=== PATIENT | female | born 1970 | race Caucasian/White ===

== ENCOUNTER → 2017-08-11 | Outpatient (CLI) | payer BC ==
--- NOTE | 2017-08-11 17:07 | DIAGNOSTIC IMAGING REPORT ---
LEFT KNEE 4 VIEWS CLINICAL HISTORY: Left knee pain status post trauma COMPARISON: None. DISCUSSION: No fractures or dislocations are visualized. The joint spaces appear relatively well preserved for age. IMPRESSION: No fractures or dislocations identified. Electronically signed by: Duarte Ro M.D. 08/11/2017 5:06 PM Dictated Date/Time: 08/11/2017 5:05 PM
== END | disposition home or self-care (01) ==
LOC: C.RDSM 16:06
PROVIDERS: ATTEND Family Medicine
DX: M25.562 Pain in left knee (principal)

== ENCOUNTER → 2017-11-12 | Outpatient (CLI) | payer BC ==
--- NOTE | 2017-11-12 15:23 | DIAGNOSTIC IMAGING REPORT ---
R RIBS UNILATERAL W/CHEST CLINICAL HISTORY: RIGHT SIDE RIB PAIN COMPARISON STUDY: None FINDINGS: Negative right ribs. No evidence for fracture. Lungs are clear. No evidence of pneumothorax. IMPRESSION: 1. Negative right ribs. 2. Negative chest. The above report was generated using voice recognition software. It may contain grammatical, syntax or spelling errors. Electronically signed by: Cody Crystal M.D. 11/12/2017 3:21 PM Dictated Date/Time: 11/12/2017 3:20 PM
== END | disposition home or self-care (01) ==
LOC: C.RDSM 20:19
PROVIDERS: ATTEND Family Medicine
DX: R07.81 Pleurodynia (principal)

== ENCOUNTER 2018-02-06 16:55 | Emergency (ER) | payer BC ==
[~2018-02-06] VITALS: Ht 170.2 cm; Wt 64.0 kg
[2018-02-06 17:03] VITALS: TEMP 36.9; Ht 170.2 cm; Wt 64.0 kg
[2018-02-06 18:24] LABS: BASO % 0.6 %; BASO ABS # 0.03 K/uL (0-0.2); EOS % 2.1 %; HEMATOCRIT 38.5 % (37-47); HEMOGLOBIN 12.9 g/dL (12.0-16.0); IG# 0.01 K/uL (0.00-0.02); LYMPH % 30.6 %; LYMPH ABS # 1.44 K/uL (1.2-3.4); MEAN CELL VOLUME 81.6 fL (80-100); MEAN CORPUSCULAR HEMOGLOBIN 27.3 pg (25-34); MEAN CORPUSCULAR HGB CONC 33.5 g/dl (32-36); MEAN PLATELET VOLUME 8.8 fL (7.4-10.4); MONO % 9.3 %; MONO ABS # 0.44 K/uL (0.11-0.59); NEUT % 57.2 %; NEUT ABS # 2.69 K/uL (1.4-6.5); PLATELET COUNT 260 K/uL (130-400); RED CELL DISTRIBUTION WIDTH CV 15.8 % (11.5-14.5); RED CELL DISTRIBUTION WIDTH SD 47.6 fL (36.4-46.3); WHITE BLOOD COUNT 4.71 K/uL (4.8-10.8)
[2018-02-06] MEDS ORDERED: SODIUM CHLORIDE 0.9% 1000ML 2,000 ML IV STA (18:27)
[2018-02-06] MEDS ORDERED: ONDANSETRON INJ 2 MG/ML 2 ML VIAL IV STA (18:27)
[2018-02-06] MEDS ORDERED: FAMOTIDINE 20 MG TAB PO ONE (18:30)
--- NOTE | 2018-02-06 18:35 | EMERGENCY ROOM VISIT NOTE ---
History Report prepared by Elzbieta: Ashanti Key Under the Supervision of: Dr. Deep Martinez M.D. First contact with patient: 18:12 Chief Complaint: GI ASSESSMENT Stated Complaint: STOMACH ISSUES,VOMITING,DEHYDRATION Nursing Triage Summary: Patient to Ed via triage, states "I started with vomiting and diarrhea Friday, I just feel so weak and dehydrated I feel like I need an IV." History of Present Illness The patient is a 47 year old female who presents to the Emergency Room with complaints of severe nausea and vomiting beginning 5 days spot cleaner. She states she flew to [place] one week spot cleaner and ran a half marathon there 5 days spot cleaner. She states she went home 4 days spot cleaner and was "violently throwing up." She states her diarrhea started 2 days ago in the morning and she went to the doctor that night and was told it was most likely a virus. She notes she had "terrible diarrhea" 4 days spot cleaner but has not had a bowel movement for the past 2 days. She states she feels severely dehydrated and nauseous and the last time she threw up was last night. She thinks her symptoms originated from her half marathon as she noticed they were bringing water "in buckets." Source of History: patient Onset: 5 days spot cleaner Position: other (global) Symptom Intensity: severe Quality: other (nausea and "violently vomiting") Associated Symptoms: + diarrhea ("terrible") Note: Positive dehydration. Review of Systems See HPI for pertinent positives and negatives. A total of ten systems were reviewed and were otherwise negative. Family History Patient reports no known family medical history. Social History Smoking Status: Never Smoker Smokeless Tobacco Use: Unknown Housing Status: unknown Occupation Status: employed Current/Historical Medications Scheduled Ondasetron Odt (Zofran Odt), 4 MG SL Q6H Protein (Protein), 1 DOSE PO DIRECTED [Juice Plus], 2 CAP PO TID Scheduled PRN Famotidine (Pepcid), 20 MG PO BID PRN for GI Upset Allergies Coded Allergies: No Known Allergies (Unverified , 02/06/18) Physical Exam Vital Signs Date Time Temp Pulse Resp B/P (MAP) Pulse Ox O2 Delivery O2 Flow Rate FiO2 02/06/18 21:40 51 20 112/68 99 02/06/18 21:40 59 20 112/68 99 Room Air 02/06/18 19:38 61 18 108/68 99 Room Air 02/06/18 18:46 51 20 116/66 100 Room Air 02/06/18 17:03 36.9 67 20 113/72 99 Room Air Physical Exam GENERAL: Awake, alert, fatigued-appearing, in no distress HENT: Normocephalic, atraumatic. Dry mucus membranes. EYES: Normal conjunctiva. Sclera non-icteric. NECK: Supple. No nuchal rigidity. FROM. No JVD. RESPIRATORY: Clear to auscultation. CARDIAC: Regular rate, normal rhythm. Extremities warm and well perfused. Pulses equal. ABDOMEN: Soft, non-distended. No tenderness to palpation. No rebound or guarding. No masses. RECTAL: Deferred. MUSCULOSKELETAL: Chest examination reveals no tenderness. The back is symmetrical on inspection without obvious abnormality. There is no CVA tenderness to palpation. No joint edema. LOWER EXTREMITIES: Calves are equal size bilaterally and non-tender. No edema. No discoloration. NEURO: Normal sensorium. No sensory or motor deficits noted. SKIN: No rash or jaundice noted. Medical Decision & Procedures Laboratory Results 02/06/18 17:55 Red Blood Count 4.72, Mean Corpuscular Volume 81.6, Mean Corpuscular Hemoglobin 27.3, Mean Corpuscular Hemoglobin Concent 33.5, Mean Platelet Volume 8.8, Neutrophils (%) (Auto) 57.2, Lymphocytes (%) (Auto) 30.6, Monocytes (%) (Auto) 9.3, Eosinophils (%) (Auto) 2.1, Basophils (%) (Auto) 0.6, Neutrophils # (Auto) 2.69, Lymphocytes # (Auto) 1.44, Monocytes # (Auto) 0.44, Eosinophils # (Auto) 0.10, Basophils # (Auto) 0.03 02/06/18 17:55 Test 02/06/18 17:55 02/06/18 20:00 White Blood Count 4.71 K/uL (4.8-10.8) Red Blood Count 4.72 M/uL (4.2-5.4) Hemoglobin 12.9 g/dL (12.0-16.0) Hematocrit 38.5 % (37-47) Mean Corpuscular Volume 81.6 fL (80-100) Mean Corpuscular Hemoglobin 27.3 pg (25-34) Mean Corpuscular Hemoglobin Concent 33.5 g/dl (32-36) Platelet Count 260 K/uL (130-400) Mean Platelet Volume 8.8 fL (7.4-10.4) Neutrophils (%) (Auto) 57.2 % Lymphocytes (%) (Auto) 30.6 % Monocytes (%) (Auto) 9.3 % Eosinophils (%) (Auto) 2.1 % Basophils (%) (Auto) 0.6 % Neutrophils # (Auto) 2.69 K/uL (1.4-6.5) Lymphocytes # (Auto) 1.44 K/uL (1.2-3.4) Monocytes # (Auto) 0.44 K/uL (0.11-0.59) Eosinophils # (Auto) 0.10 K/uL (0-0.5) Basophils # (Auto) 0.03 K/uL (0-0.2) RDW Standard Deviation 47.6 fL (36.4-46.3) RDW Coefficient of Variation 15.8 % (11.5-14.5) Immature Granulocyte % (Auto) 0.2 % Immature Granulocyte # (Auto) 0.01 K/uL (0.00-0.02) Anion Gap 5.0 mmol/L (3-11) Est Creatinine Clear Calc Drug Dose 56.1 ml/min Estimated GFR () 62.7 Estimated GFR (Non- 54.1 BUN/Creatinine Ratio 11.1 (10-20) Calcium Level 8.6 mg/dl (8.5-10.1) Total Bilirubin 0.4 mg/dl (0.2-1) Aspartate Amino Transf (AST/SGOT) 19 U/L (15-37) Alanine Aminotransferase (ALT/SGPT) 27 U/L (12-78) Alkaline Phosphatase 51 U/L (45-117) Total Protein 7.1 gm/dl (6.4-8.2) Albumin 3.6 gm/dl (3.4-5.0) Globulin 3.5 gm/dl (2.5-4.0) Albumin/Globulin Ratio 1.0 (0.9-2) Lipase 158 U/L (73-393) Human Chorionic Gonadotropin, Qual NEG (NEG) Urine Color DK YELLOW Urine Appearance CLOUDY (CLEAR) Urine pH 5.5 (4.5-7.5) Urine Specific [facility] 1.025 (1.000-1.030) Urine Protein NEG (NEG) Urine Glucose (UA) NEG (NEG) Urine Ketones TRACE (NEG) Urine Occult Blood NEG (NEG) Urine Nitrite NEG (NEG) Urine Bilirubin NEG (NEG) Urine Urobilinogen NEG (NEG) Urine Leukocyte Esterase NEG (NEG) Urine WBC (Auto) 1-5 /hpf (0-5) Urine RBC (Auto) 10-30 /hpf (0-4) Urine Hyaline Casts (Auto) 5-10 /lpf (0-5) Urine Epithelial Cells (Auto) >30 /lpf (0-5) Urine Bacteria (Auto) NEG (NEG) Urine Crystals CALCIUM OXALATE (NONE Laboratory results reviewed by me Medications Administered Medications (Trade) Dose Ordered Sig/Anish Route Start Time Stop Time Status Last Admin Dose Admin Sodium Chloride 2,000 ml @ 999 mls/hr Q2H1M STAT IV 02/06/18 18:27 02/06/18 20:27 DC 02/06/18 18:45 999 MLS/HR Ondansetron HCl (Zofran Inj) 4 mg NOW STAT IV 02/06/18 18:27 02/06/18 18:28 DC 02/06/18 18:45 4 MG Famotidine (Pepcid Tab) 20 mg NOW ONCE PO 02/06/18 18:30 02/06/18 18:31 DC 02/06/18 18:45 20 MG Ondansetron HCl (ZOFRAN ODT 4MG Home Pack) 1 homepack UD ONCE PO 02/06/18 21:15 02/06/18 21:16 DC 02/06/18 21:35 1 HOMEPACK Medical Decision I reviewed the patient's past medical history, medications, and the nursing notes as described above. Differential diagnosis: Etiologies such as gastroenteritis, food borne illness, infections, appendicitis , diverticulitis, inflammatory bowel disease, obstruction, GI bleed, biliary pathology, as well as others were entertained. The patient is a 47-year-old woman who presents emergency department with nausea vomiting diarrhea per hpi. On arrival the patient is fatigued appearing but no acute distress, afebrile stable vital signs. Patient appears clinically dry. Abdomen is soft nontender nondistended. Labs unremarkable. Patient feeling improved after IV fluids, Zofran, Pepcid. Given reassuring exam, vital signs, labs unlikely to have emergent process in this otherwise healthy physically fit the patient. Plan for PCP follow-up. Findings and plan for follow-up reviewed with patient. Patient agreeable and d/c'd per discharge instructions. Medication Reconcilliation Current Medication List: was personally reviewed by me Blood Pressure Screening Patient's blood pressure: Normal blood pressure Blood pressure disposition: Did not require urgent referral Impression Primary Impression: Gastroenteritis Scribe Attestation The scribe's documentation has been prepared under my direction and personally reviewed by me in its entirety. I confirm that the note above accurately reflects all work, treatment, procedures, and medical decision making performed by me. Departure Information Dispostion Home / Self-Care Prescriptions Famotidine (PEPCID) 20 Mg Tab 20 MG PO BID Y for GI Upset for 10 Days, #20 TAB Prov: Deep Martinez M.D. 02/06/18 Ondasetron Odt (ZOFRAN ODT) 4 Mg Tab 4 MG SL Q6H for Nausea, #10 TAB Prov: Deep Martinez M.D. 02/06/18 Referrals No Doctor, Assigned (PCP) Forms HOME CARE DOCUMENTATION FORM, IMPORTANT VISIT INFORMATION Patient Instructions ED Gastritis, ED Gastroenteritis Viral, My [facility] Additional Instructions Please follow up with your primary care physician in the next 1-3 days for re- evaluation. You likely have a viral GI infection. Otherwise, your exam and lab results did not show signs of an emergent condition at this time. Acetaminophen for pain and fevers as needed. Zofran as needed for nausea. Pepcid for acid reduction/GI upset. Drink plenty of fluids to ensure hydration. Return to the emergency department for worsening symptoms as described in the accompanying instructions.
[2018-02-06 18:36] LABS: ALBUMIN 3.6 gm/dl (3.4-5.0); CALCIUM 8.6 mg/dl (8.5-10.1); CREATININE 1.18 mg/dl (0.60-1.20)
[2018-02-06] MEDS ORDERED: JUICE PLUS PO (18:43)
[2018-02-06] MEDS ORDERED: PROT1POW PO (18:43)
[2018-02-06 18:48] LABS: TOTAL PROTEIN 7.1 gm/dl (6.4-8.2)
[2018-02-06] MEDS ORDERED: ONDA4TAB10 SL (21:10)
[2018-02-06] MEDS ORDERED: FAMO20TA9 PO (21:10)
[2018-02-06] MEDS ORDERED: ONDANSETRON HOME PACK 4MG OD TAB PO ONE (21:15)
[2018-02-06 21:40] VITALS: BP 112/68; PULSE 59; O2SAT 99
== END 2018-02-06 21:42 | disposition home or self-care (01) ==
LOC: C.EDB 16:57
DX: K52.9 Noninfective gastroenteritis and colitis, unspecified (principal)